=== PATIENT | male | born 1970 | race Two or more races ===

== ENCOUNTER 2017-06-18 09:17 | Emergency (ER) | payer MEDICAID ==
[2017-06-18 11:42] VITALS: BP 159/100
== END 2017-06-18 11:42 | disposition home or self-care (01) ==
LOC: ED 09:17
DX: I16.0 Hypertensive urgency (principal)

== ENCOUNTER 2018-05-18 11:54 | Emergency (ER) | payer SELFPAY ==
[~2018-05-18] VITALS: Ht 157.5 cm; Wt 76.2 kg
[2018-05-18 12:20] VITALS: Ht 157.5 cm; Wt 76.2 kg
[2018-05-18 13:19] LABS: BASOPHIL % 1.3 % (0-2); PLATELET COUNT 152 x10^3mcL (130-400); RED CELL DISTRIBUTION WIDTH 13.7 % (11.5-14.5)
[2018-05-18 13:25] LABS: CALCIUM 8.9 mg/dL (8.5-10.1); CARBON DIOXIDE 29.9 mmol/L (21-32); CHLORIDE SERUM 103 mmol/L (98-107); CREATININE SERUM 0.8 mg/dL (0.7-1.3); GFR1 > 60 mL/min; GLUCOSE SERUM 99 mg/dL (74-106); SODIUM SERUM 140 mmol/L (136-145)
[2018-05-18 13:31] LABS: ALBUMIN 3.9 g/dL (3.4-5.0); ALKALINE PHOSPHATASE 85 U/L (46-116); ALT/SGPT 27 U/L (16-63); AST/SGOT 28 U/L (15-37); BILIRUBIN TOTAL 0.49 mg/dL (0.20-1.00); TOTAL PROTEIN, SERUM 7.5 g/dL (6.4-8.2)
[2018-05-18 15:56] VITALS: BP 141/86
[2018-05-18 15:58] LABS: AMPHETAMINE QUAL UR NONE DETECTED (See below)
== END 2018-05-18 15:56 | disposition home or self-care (01) ==
LOC: ED 11:54
PROVIDERS: Emergency Medicine
DX: I10 Essential (primary) hypertension (principal); R42 Dizziness and giddiness; R55 Syncope and collapse
CPT/HCPCS: 36415